=== PATIENT | male | born 1955 | race Two or more races ===

== ENCOUNTER 2019-03-12 21:56 | Emergency (ER) | payer BC ==
[~2019-03-12] VITALS: Ht 165.1 cm; Wt 65.8 kg
[2019-03-12 22:00] VITALS: BP 179/97
[2019-03-12 22:32] LABS: BASOPHILS % (AUTO) 0.2 % (0.0-2.0); EOSINOPHILS # (AUTO) 0.1 K/uL (0-0.4); EOSINOPHILS % (AUTO) 1.8 % (0.0-4.0); HEMATOCRIT 41.8 % (36-52); HEMOGLOBIN 13.9 g/dL (12.0-18.0); LYMPHOCYTES # (AUTO) 1.4 K/uL (2.0-11.5); MEAN CORPUSCULAR HEMOGLOBIN 28 pg (27-31); MEAN CORPUSCULAR HGB CONC 33 g/dL (33-37); MEAN CORPUSCULAR VOLUME 84.9 fL (80-94); MONOCYTES # (AUTO) 0.6 K/uL (0.8-1.0); MONOCYTES % (AUTO) 9.3 % (1.7-9.3); NEUTROPHILS # (AUTO) 4.7 K/uL (1.8-7.7); NEUTROPHILS % (AUTO) 68.7 % (42.2-75.2); PLATELET COUNT (AUTO) 207 K/uL (140-450); RED BLOOD CELL COUNT(AUTO) 4.93 MIL/uL (4.20-6.10); RED CELL DISTRIBUTION WIDTH 13.7 % (11.6-13.7); WHITE BLOOD COUNT (AUTO) 6.8 K/uL (4.8-10.8)
[2019-03-12] MEDS ORDERED: MECLIZINE 25 MG TAB PO ONE (22:40)
[2019-03-12] MEDS ORDERED: NACL 0.9% 1,000 ML IV ONE (22:40)
[2019-03-12 22:47] LABS: ANION GAP 15.3 (8-16); CARBON DIOXIDE 25.2 mmol/L (21-32); CREATININE 1.2 mg/dL (0.7-1.3); POTASSIUM 3.5 mmol/L (3.5-5.1)
[2019-03-12 22:53] LABS: ALBUMIN 3.7 g/dL (3.4-5.0); TOTAL BILIRUBIN 0.9 mg/dL (0.0-1.0)
[2019-03-12 23:25] LABS: APPEARANCE,URINE CLEAR (CLEAR); BILIRUBIN,URINE NEGATIVE (NEGATIVE); BLOOD, URINE NEGATIVE (NEGATIVE); COLOR,URINE YELLOW (YELLOW); LEUKOCYTE ESTERASE ,URINE NEGATIVE (NEGATIVE); NITRITE, URINE NEGATIVE (NEGATIVE); PH,URINE 5.5 (5.0-9.0); UGLUCOSE NEGATIVE (NEGATIVE)
[2019-03-12 23:30] LABS: BARBITURATE, URINE NEG. ng/ml (NEG <=200); BENZODIAZEPINE, URINE NEG. ng/mL (NEG <=200); CANNABINOID, URINE NEG. ng/mL (NEG <=50); COCAINE, URINE NEG. ng/mL (NEG <=300); OPIATE, URINE NEG. ng/mL (NEG <=2000); PHENCYCLIDINE SCREEN,URINE NEG. ng/mL (NEG <=25)
[2019-03-13] MEDS ORDERED: MECLIZINE 25 MG TAB PO ONE (00:05)
[2019-03-13] MEDS ORDERED: hydrALAZINE 20 MG/ML VIAL IVP ONE (00:05)
[2019-03-13 00:47] VITALS: BP 151/83
== END 2019-03-13 00:47 | disposition home or self-care (01) ==
LOC: MED 21:56
DX: R42 Dizziness and giddiness (principal); I10 Essential (primary) hypertension
CPT/HCPCS: 36415; 70450; 71045; 80053; 80305; 81002; 81003; 84484; 85025; 93005; 96374; 99284; J0360; J7030; J8597; Q0092

== ENCOUNTER 2020-08-04 00:45 | Emergency (ER) | payer BC ==
[~2020-08-04] VITALS: Ht 162.6 cm; Wt 65.8 kg
[2020-08-04 00:51] VITALS: BP 176/96
[2020-08-04] MEDS ORDERED: ASPIRIN 81 MG TAB.CHEW PO ONE (01:15)
[2020-08-04] MEDS ORDERED: NACL 0.9% 500 ML IV ONE (01:15)
[2020-08-04] MEDS ORDERED: METOPROLOL 25 MG TAB PO ONE (01:15)
[2020-08-04] MEDS ORDERED: KETOROLAC 30 MG/ML VIAL IVP ONE (01:30)
[2020-08-04] MEDS ORDERED: NITROGLYCERIN 2% 1 GM PKT TP ONE (01:30)
[2020-08-04] MEDS ORDERED: PANTOPRAZOLE 40 MG INJ VIAL IVP ONE (01:30)
[2020-08-04 01:32] LABS: BASOPHILS # (AUTO) 0.2 K/uL (0.00-0.22); BASOPHILS % (AUTO) 3.7 % (0.0-2.0); EOSINOPHILS # (AUTO) 0.1 K/uL (0-0.4); EOSINOPHILS % (AUTO) 2.4 % (0.0-4.0); HEMATOCRIT 42.4 % (36-52); HEMOGLOBIN 13.8 g/dL (12.0-18.0); LYMPHOCYTES # (AUTO) 1.1 K/uL (2.0-11.5); LYMPHOCYTES % (AUTO) 18.2 % (20.5-51.1); MEAN CORPUSCULAR HEMOGLOBIN 28 pg (27-31); MEAN CORPUSCULAR HGB CONC 33 g/dL (33-37); MONOCYTES # (AUTO) 0.6 K/uL (0.8-1.0); MONOCYTES % (AUTO) 10.3 % (1.7-9.3); NEUTROPHILS # (AUTO) 3.8 K/uL (1.8-7.7); NEUTROPHILS % (AUTO) 65.4 % (42.2-75.2); PLATELET COUNT (AUTO) 200 K/uL (140-450); RED BLOOD CELL COUNT(AUTO) 4.93 MIL/uL (4.20-6.10); RED CELL DISTRIBUTION WIDTH 13.8 % (11.6-13.7); WHITE BLOOD COUNT (AUTO) 5.8 K/uL (4.8-10.8)
[2020-08-04 01:43] LABS: ALBUMIN 3.9 g/dL (3.4-5.0); ANION GAP 13.3 (8-16); CARBON DIOXIDE 26.6 mmol/L (21-32); CREATININE 1.2 mg/dL (0.6-1.3); POTASSIUM 3.9 mmol/L (3.5-5.1); TOTAL BILIRUBIN 0.9 mg/dL (0.0-1.0)
[2020-08-04 04:01] VITALS: BP 113/62
[2020-08-04] MEDS ORDERED: DOPPLER MC ONE (04:49)
== END 2020-08-04 04:00 | disposition home or self-care (01) ==
LOC: MED 00:45
DX: R07.89 Other chest pain (principal); I10 Essential (primary) hypertension; R10.9 Unspecified abdominal pain
CPT/HCPCS: 36415; 71045; 80053; 84484; 85025; 93005; 96374; 96375; 99285; C9113; J1885; J7030